=== PATIENT | male | born 1995 | race Caucasian/White ===

== ENCOUNTER 2022-08-12 21:03 | Emergency (ER) | payer OTHER ==
[~2022-08-12] VITALS: Ht 185.9 cm; Wt 106.5 kg
[2022-08-12 21:20] VITALS: BP 122/93
[2022-08-12] MEDS ORDERED: NS IV 1000 ML 1,000 ML IV SCH ×3 (21:30→22:45)
[2022-08-12] MEDS ORDERED: ONDANSETRON 4 MG/2 ML (SDV) Z0FRAN IVP ONE (21:30)
--- NOTE | 2022-08-12 21:33 | ED GI ---
General Stated Complaint: N/V/D Source of Information: Patient History of Present Illness Date Seen by Provider: August 12, 2022 Time Seen by Provider: 21:18 Initial Comments PT ARRIVES VIA POV FROM HOME IN [place] WITH PT STATES HE BEGAN GETTING SICK AROUND 2200 LAST NIGHT WITH NAUSEA / VOMITING / DIARRHEA HE HAS VOMITED X 3 HE HAS HAD OVER 40 EPISODES OF DIARRHEA. NO BLACK/BLOODY/TARRY STOOLS NO ABDOMINAL PAIN NO FEVER LAST VOID WAS 1 1/2 HOURS AGO, AND WAS VERY DARK. PT IS INSULIN DEPENDENT DIABETIC, AND HAS C.G.M. BLOOD SUGAR IS CURRENTLY 172. HE HAS NOT HAD ANY SIGNIFICANTLY HIGH OR LOW READINGS TODAY. READINGS HAVE BEEN FROM THE 80'S TO 170'S TODAY. PT WAS STARTED ON MOUNJARO 1 1/2 MONTHS AGO, AT 2.5 MG. EARLIER THIS WEEK IT WAS INCREASED TO 5 MG. HE HAS ALSO BEEN PRESCRIBED TOUJEO, BUT HE HAS NEVER TAKEN IT. HE HAS ALSO BEEN PRESCRIBED LISINOPRIL FOR HTN AND RENAL PROTECTION, BUT HE HAS NEVER TAKEN IT. HE STATES HE ONLY RECENTLY STARTED TAKING CARE OF HIMSELF IN REGARDS TO HIS DIABETES HE STATES HE HAS BEEN IN DKA A FEW TIMES. NO KNOWN SICK CONTACTS NO SUSPICIOUS FOODS NO HISTORY OF GI PROBLEMS PT HAS HAD COVID VACCINE X 3, NO FLU VACCINE PCP: DR. REYES [place] PRINCIPAL INVESTIGATOR: WITH LEIGH ANN GARCIA VIDA Allergies and Home Medications Allergies Coded Allergies: No Known Drug Allergies (Unverified , 08/12/22) Patient Home Medication List Home Medication List Reviewed: Yes Diphenoxylate HCl/Atropine (Lomotil 2.5-0.025 mg Tablet) 2.5 Mg-0.025 Mg Tablet, 1 EACH PO QID Prescribed by: RELL US on 08/13/2236 L. Acidophilus/Pectin, [place] (Acidophilus Capsule) 7.5 Mg (30 Million Cell)-100 Mg Capsule, 2 EACH PO QID Prescribed by: RELL US on 08/13/2236 Ondansetron (Ondansetron Odt) 8 Mg Tab.rapdis, 8 MG PO Q6H Prescribed by: RELL US on 08/13/2236 Review of Systems Review of Systems Constitutional: no symptoms reported Respiratory: No Symptoms Reported Cardiovascular: No Symptoms Reported Gastrointestinal: See HPI; Denies Abdominal Pain; Diarrhea, Nausea, Vomiting Genitourinary: See HPI Musculoskeletal: no symptoms reported Skin: no symptoms reported Psychiatric/Neurological: No Symptoms Reported Endocrine: No Symptoms Reported Hematologic/Lymphatic: No Symptoms Reported Past Dcfjkhj-[id number]-Hrthcx Hx Patient Social History Tobacco Use?: No Substance use?: No Alcohol Use?: No Past Medical History Surgeries: No Respiratory: No Cardiac: Yes Hypertension Neurological: No Genitourinary: No Gastrointestinal: No Musculoskeletal: No Endocrine: Yes Diabetes, Insulin dep HEENT: No Cancer: No Psychosocial: No Integumentary: No Physical Exam Vital Signs Vital Signs - First Documented 08/12/22 21:20 Temp 36.7 Pulse 111 Resp 16 B/P (MAP) 122/93 (103) Capillary Refill : Height/Weight/BMI Height: '" Weight: lbs. oz. kg; BMI Method: General Appearance: WD/WN, no apparent distress, other (DOES NOT APPEAR ILL OR TO BE IN ANY DISCOMFORT OR DISTRESS. SMILING AND PLEASANT, TEXTING/PLAYING ON PHONE. ) HEENT: PERRL/EOMI, other (ORAL MUCOSA IS MOIST) Neck: normal inspection Respiratory: normal breath sounds, no respiratory distress, no accessory muscle use Cardiovascular: regular rate, rhythm, no murmur Gastrointestinal: soft, no organomegaly, no pulsatile mass, abnormal bowel sounds (HYPERACTIVE), tenderness (MILD DIFFUSE TENDERNESS) Extremities: normal inspection, normal capillary refill Back: no CVA tenderness Neurologic/Psychiatric: clinical analyst II-XII nml as tested, no motor/sensory deficits, alert, normal mood/affect, oriented x 3 Skin: normal color, warm/dry Progress/Results/Core Measures Results/Orders Lab Results Laboratory Tests Test 08/12/22 21:00 08/12/22 21:27 08/12/22 21:52 08/12/22 22:23 Range/Units Stool Occult Blood Immunoassay POSITIVE H NEGATIVE White Blood Count 12.5 H 4.3-11.0 10^3/uL Red Blood Count 6.52 H 4.30-5.52 10^6/uL Hemoglobin 19.5 H 13.3-17.7 g/dL Hematocrit 56 H 40-54 % Mean Corpuscular Volume 87 80-99 fL Mean Corpuscular Hemoglobin 30 25-34 pg Mean Corpuscular Hemoglobin Concent 35 32-36 g/dL Red Cell Distribution Width 12.5 10.0-14.5 % Platelet Count 340 130-400 10^3/uL Mean Platelet Volume 11.3 9.0-12.2 fL Immature Granulocyte % (Auto) 0 % Neutrophils (%) (Auto) 74 42-75 % Lymphocytes (%) (Auto) 13 12-44 % Monocytes (%) (Auto) 8 0-12 % Eosinophils (%) (Auto) 5 0-10 % Basophils (%) (Auto) 0 0-10 % Neutrophils # (Auto) 9.3 H 1.8-7.8 10^3/uL Lymphocytes # (Auto) 1.6 1.0-4.0 10^3/uL Monocytes # (Auto) 1.0 0.0-1.0 10^3/uL Eosinophils # (Auto) 0.6 H 0.0-0.3 10^3/uL Basophils # (Auto) 0.0 0.0-0.1 10^3/uL Immature Granulocyte # (Auto) 0.0 0.0-0.1 10^3/uL Sodium Level 140 135-145 MMOL/L Potassium Level 4.1 3.6-5.0 MMOL/L Chloride Level 104 98-107 MMOL/L Carbon Dioxide Level 22 21-32 MMOL/L Anion Gap 14 5-14 MMOL/L Blood Urea Nitrogen 22 H 7-18 MG/DL Creatinine 1.35 H 0.60-1.30 MG/DL Estimat Glomerular Filtration Rate 73 BUN/Creatinine Ratio 16 Glucose Level 173 H 70-105 MG/DL Calcium Level 9.4 8.5-10.1 MG/DL Corrected Calcium 8.5-10.1 MG/DL Magnesium Level 1.8 1.6-2.4 MG/DL Total Bilirubin 1.8 H 0.1-1.0 MG/DL Aspartate Amino Transf (AST/SGOT) 14 5-34 U/L Alanine Aminotransferase (ALT/SGPT) 31 0-55 U/L Alkaline Phosphatase 56 40-136 U/L Total Protein 7.4 6.4-8.2 GM/DL Albumin 4.6 H 3.2-4.5 GM/DL Amylase Level 24 L 25-125 U/L Lipase 6 L 8-78 U/L Beta-Hydroxybutyrate (Chem panel) 0.33 H 0.00-0.27 MMOL/L Serum Alcohol < 10 <10 MG/DL Influenza Type A (RT-PCR) Not Detected Not Detecte Influenza Type B (RT-PCR) Not Detected Not Detecte SARS-CoV-2 RNA (RT-PCR) Not Detected Not Detecte Urine Color DARK YELLOW Urine Clarity CLEAR Urine pH 5.5 5-9 Urine Specific [place] >=1.030 1.016-1.022 Urine Protein 2+ H NEGATIVE Urine Glucose (UA) NEGATIVE NEGATIVE Urine Ketones TRACE H NEGATIVE Urine Nitrite POSITIVE H NEGATIVE Urine Bilirubin 2+ H NEGATIVE Urine Urobilinogen 1.0 < = 1.0 MG/DL Urine Leukocyte Esterase NEGATIVE NEGATIVE Urine RBC (Auto) NEGATIVE NEGATIVE Urine RBC 0-2 /HPF Urine WBC 2-5 /HPF Urine Squamous Epithelial Cells 2-5 /HPF Urine Crystals PRESENT H /LPF Urine Amorphous Sediment MOD KATELYN URATES H /LPF Urine Bacteria FEW H /HPF Urine Casts PRESENT /LPF Urine Hyaline Casts >50 H /LPF Urine Mucus LARGE H /LPF Urine Culture Indicated YES Urine Opiates Screen NEGATIVE NEGATIVE Urine Oxycodone Screen NEGATIVE NEGATIVE Urine Methadone Screen NEGATIVE NEGATIVE Urine Propoxyphene Screen NEGATIVE NEGATIVE Urine Barbiturates Screen NEGATIVE NEGATIVE Ur Tricyclic Antidepressants Screen NEGATIVE NEGATIVE Urine Phencyclidine Screen NEGATIVE NEGATIVE Urine Amphetamines Screen NEGATIVE NEGATIVE Urine Methamphetamines Screen NEGATIVE NEGATIVE Urine Benzodiazepines Screen NEGATIVE NEGATIVE Urine Cocaine Screen NEGATIVE NEGATIVE Urine Cannabinoids Screen NEGATIVE NEGATIVE My Orders Orders - RELL US DO Covid 19 Inhouse Test (08/12/22 21:17) Ed Iv/Invasive Line Start (08/12/22 21:17) Monitor-Rhythm Ecg Trace Only (08/12/22 21:17) Alcohol (08/12/22 21:17) Amylase (08/12/22 21:17) Cbc With Automated Diff (08/12/22 21:17) Comprehensive Metabolic Panel (08/12/22 21:17) Drug Screen Stat (Urine) (08/12/22 21:17) Lipase (08/12/22 21:17) Magnesium (08/12/22 21:17) Ua Culture If Indicated (08/12/22 21:17) Influenza A And B By Pcr (08/12/22 21:17) Isolation Central Supply Req (08/12/22 21:17) Ed Iv/Invasive Line Start (08/12/22 21:17) Ondansetron Injection (Zofran Injectio (08/12/22 21:30) Ed Iv/Invasive Line Start (08/12/22 21:17) Ns Iv 1000 Ml (Sodium Chloride 0.9%) (08/12/22 21:30) Hemoglobin A1c (08/12/22 21:48) Beta Hydroxybutyrate (08/12/22 21:27) Stool Culture (08/12/22 22:01) Fecal Wbc (08/12/22 22:01) C Difficile Ag + Toxin A/B. (08/12/22 22:01) Rotavirus Antigen (08/12/22 22:01) Isolation Central Supply Req (08/12/22 22:01) Occult Blood Stool (08/12/22 21:00) Ed Iv/Invasive Line Start (08/12/22 22:30) Ns Iv 1000 Ml (Sodium Chloride 0.9%) (08/12/22 22:30) Ed Iv/Invasive Line Start (08/12/22 22:31) Ns Iv 1000 Ml (Sodium Chloride 0.9%) (08/12/22 22:45) Ct Abdomen/Pelvis W (08/12/22 22:36) Urine Culture (08/12/22 22:23) Iohexol Injection (Omnipaque 350 Mg/Ml 1 (08/13/22 00:00) Received Contrast (Hold Metformin- Contr (08/13/22 00:00) Ns (Ivpb) (Sodium Chloride 0.9% Ivpb Bag (08/13/22 00:00) Rx-Ondansetron Po (Rx-Zofran Po) (08/13/22 00:32) Medications Given in ED Current Medications Medications Dose Ordered Sig/Harika Route Start Time Stop Time Status Last Admin Dose Admin Iohexol 100 ml ONCE ONCE IV 08/13/22 00:00 08/13/22 00:34 DC 08/12/22 23:59 100 ML Ondansetron HCl 4 mg ONCE ONCE IVP 08/12/22 21:30 08/12/22 21:31 DC 08/12/22 21:37 4 MG Sodium Chloride 100 ml ONCE ONCE IV 08/13/22 00:00 08/13/22 00:34 DC 08/12/22 23:59 80 ML Vital Signs/I&O 08/12/22 21:20 Temp 36.7 Pulse 111 Resp 16 B/P (MAP) 122/93 (103) Progress Progress Note : Progress Note PT'S CGM READS 172 ON ARRIVAL GIVEN: -IV FLUIDS -ZOFRAN--NAUSEA RESOLVED PT DID HAVE A SMALL LIQUID STOOL, LIGHT RED IN COLOR. SPECIMEN SENT TO LAB FOR ANALYSIS PT HAD A TOTAL OF 5 SMALL STOOLS DURING ER STAY. VITALS STABLE NO VOMITING DURING ER STAY NO FEVER NO ABDOMINAL PAIN PT VOIDED A COUPLE OF TIMES DURING ER STAY DO NOT FEEL THAT PT IS IN DKA--ONLY TRACE OF KETONES IN URINE, NO GLUCOSE IN URINE, BETA-HYDROXY BUTYRATE IS ONLY SLIGHTLY ELEVATED. NORMAL CO2 LEVEL AND NORMAL ANION GAP ON CHEMISTRY, WITH NORMAL ELECTROLYTES. PT DOES NOT HAVE ANY PHYSICAL SYMPTOMS OF DKA--STATES HE DOES NOT FEEL AT ALL LIKE HE HAS IN THE PAST WHEN HE HAS BEEN IN DKA--STATES HE DOES NOT FEEL SHORT OF BREATH, CANNOT TASTE THE KETONES AND CANNOT SMELL THE KETONES IN HIS URINE. PT STATES HE FEELS MUCH BETTER, AND FEELS COMFORTABLE GOING HOME DISCUSSED TEST RESULTS, AND DISCUSSED PENDING STOOL CULTURES AND URINE CULTURE. PT HAS NO URINARY SYMPTOMS AT THIS TIME. WILL HOLD OFF ON TREATING UTI WITH ANTIBIOTICS AT THIS TIME DUE TO THE DEGREE OF DIARRHEA THAT PT IS HAVING, AND AWAIT CULTURE RESULTS BEFORE PRESCRIBING ANTIBIOTICS DISCUSSED DIET, MEDICATIONS, NEED FOR FOLLOW UP AND RETURN PRECAUTIONS WITH PT AND . AT THIS POINT, UNABLE TO DETERMINE IF HIS SYMPTOMS ARE DUE TO INFECTIOUS ETIOLOGY OR RELATED TO HIS RECENT INCREASED DOSE OF MOUNJARO Diagnostic Imaging Comments CT ABDOMEN/PELVIS--PER [facility] VIA FAX AT 0020 -UNREMARKABLE APPENDIX -CONSIDER MILD DIFFUSE ENTEROCOLITIS -NO BOWEL OBSTRUCTION -FATTY LIVER -GALLBLADDER IS UNREMARKABLE -NO HYDRONEPHROSIS Reviewed: Reviewed by Me Departure Impression Primary Impression: Gastroenteritis Additional Impressions: Dehydration Diabetes mellitus Disposition: 01 HOME, SELF-CARE Condition: Improved Departure-Patient Inst. Decision time for Depature: 00:33 Referrals: SYDNI REYES DO (PCP/Family) Primary Care Physician Patient Instructions: Dehydration, Adult (DC), [id number], Sick Day Management for Diabetics Add. Discharge Instructions: CLEAR LIQUIDS--WATER, BROTH, JELLO, GATORADE WHEN YOUR NAUSEA IS BETTER, AND YOU ARE TOLERATING CLEAR LIQUIDS, YOU MAY THEN ADD A BRATS DIET TO CLEAR LIQUIDS--BANANAS, RICE, APPLSAUCE, TOAST, SALTINES FOLLOW UP WITH YOUR REGULAR DR ON MONDAY FOR FURTHER CARE YOU MAY ALSO NEED TO FOLLOW UP WITH YOUR PRINCIPAL INVESTIGATOR WELL. RETURN TO ER IF YOUR SYMPTOMS WORSEN Scripts Diphenoxylate HCl/Atropine (Lomotil 2.5-0.025 mg Tablet) 2.5 Mg-0.025 Mg Tablet 1 EACH PO QID, #12 TAB Prov: RELL US DO 08/13/22 Ondansetron (Ondansetron Odt) 8 Mg Tab.rapdis 8 MG PO Q6H, #10 TAB Prov: RELL US DO 08/13/22 L. Acidophilus/Pectin, [place] (Acidophilus Capsule) 7.5 Mg (30 Million Cell)-100 Mg Capsule 2 EACH PO QID, #40 CAP Prov: RELL US DO 08/13/22 RELL US DO August 12, 2022 21:33
[2022-08-12 21:38] LABS: BASOPHILS % (AUTO) 0 % (0-10); EOSINOPHILS # (AUTO) 0.6 10^3/uL (0.0-0.3); EOSINOPHILS % (AUTO) 5 % (0-10); HEMATOCRIT 56 % (40-54); HEMOGLOBIN 19.5 g/dL (13.3-17.7); LYMPHOCYTES # (AUTO) 1.6 10^3/uL (1.0-4.0); LYMPHOCYTES % (AUTO) 13 % (12-44); MEAN CORPUSCULAR HEMOGLOBIN 30 pg (25-34); MEAN CORPUSCULAR HGB CONC 35 g/dL (32-36); MEAN CORPUSCULAR VOLUME 87 fL (80-99); MEAN PLATELET VOLUME 11.3 fL (9.0-12.2); MONOCYTES % (AUTO) 8 % (0-12); NEUTROPHILS # (AUTO) 9.3 10^3/uL (1.8-7.8); NEUTROPHILS % (AUTO) 74 % (42-75); PLATELET COUNT 340 10^3/uL (130-400); WHITE BLOOD COUNT 12.5 10^3/uL (4.3-11.0)
[2022-08-12 21:50] LABS: ALBUMIN 4.6 GM/DL (3.2-4.5); CHLORIDE 104 MMOL/L (98-107); POTASSIUM 4.1 MMOL/L (3.6-5.0); SODIUM 140 MMOL/L (135-145)
[2022-08-12 21:51] LABS: CALCIUM 9.4 MG/DL (8.5-10.1)
[2022-08-12 21:52] LABS: AMYLASE 24 U/L (25-125)
[2022-08-12 21:53] LABS: GLUCOSE 173 MG/DL (70-105); TOTAL PROTEIN 7.4 GM/DL (6.4-8.2)
[2022-08-12 21:54] LABS: BILIRUBIN,TOTAL 1.8 MG/DL (0.1-1.0); CARBON DIOXIDE 22 MMOL/L (21-32)
[2022-08-12 21:56] LABS: ALKALINE PHOSPHATASE 56 U/L (40-136)
[2022-08-12 21:57] LABS: CREATININE SERUM 1.35 MG/DL (0.60-1.30); GFR ESTIMATED 73
[2022-08-12 21:58] LABS: BUN/CREATININE RATIO 16
[2022-08-12 21:59] LABS: ALANINE AMINOTRANSFERASE 31 U/L (0-55)
[2022-08-12 22:00] LABS: MAGNESIUM 1.8 MG/DL (1.6-2.4)
[2022-08-12 22:01] LABS: LIPASE 6 U/L (8-78)
[2022-08-12 22:28] LABS: CLARITY,URINE CLEAR; COLOR,URINE DARK YELLOW; GLUCOSE, URINE (UA) NEGATIVE (NEGATIVE); KETONES,URINE TRACE (NEGATIVE); LEUKOCYTE ESTERASE ,URINE NEGATIVE (NEGATIVE); NITRITE,URINE POSITIVE (NEGATIVE); PH,URINE 5.5 (5-9); PROTEIN,URINE 2+ (NEGATIVE)
[2022-08-12 22:39] LABS: BILIRUBIN,URINE 2+ (NEGATIVE)
[2022-08-12 22:40] LABS: AMORPHOUS SEDIMENT,UR MOD AMOR URATES /LPF; BACTERIA,URINE FEW /HPF; RBC,URINE 0-2 /HPF
[2022-08-12 22:41] LABS: HYALINE CASTS, URINE >50 /LPF
[2022-08-12 22:43] LABS: AMPHETAMINE SCREEN, URINE NEGATIVE (NEGATIVE); BARBITURATE SCREEN URINE NEGATIVE (NEGATIVE); BENZODIAZEPINES SCREEN URINE NEGATIVE (NEGATIVE); CANNABINOID SCREEN, URINE NEGATIVE (NEGATIVE); COCAINE SCREEN URINE NEGATIVE (NEGATIVE); METHADONE STAT NEGATIVE (NEGATIVE); OPIATE SCREEN URINE NEGATIVE (NEGATIVE); OXYCODONE STAT NEGATIVE (NEGATIVE); PROPOXYPHENE STAT NEGATIVE (NEGATIVE); TRICYCLIC ANTIDEPRESSANTS SCRE NEGATIVE (NEGATIVE)
[2022-08-13] MEDS ORDERED: NS 100 ML (IVPB) BAG IV ONE
[2022-08-13] MEDS ORDERED: IOHEXOL 350 MG/ML 100 ML (OMNIPAQUE 350) VIAL IV ONE
[2022-08-13] MEDS ORDERED: HOLD METFORMIN - RECEIVED CONTRAST 20 ML VIAL IV SCH
[2022-08-13] MEDS ORDERED: RX-ONDANSETRON 4 MG ODT (ZOFRAN) PPK #4 PO STA (00:32)
[2022-08-13] MEDS ORDERED: L. A1CAP11 PO (00:37)
[2022-08-13] MEDS ORDERED: ONDA8TAB13 PO (00:37)
[2022-08-13] MEDS ORDERED: DIPH1TAB PO ×2 (00:37)
--- NOTE | 2022-08-13 07:02 | Diagnostic Imaging Report ---
CT ABDOMEN/PELVIS W TECHNIQUE: Multiple contiguous axial images were obtained through the abdomen and pelvis after administration of intravenous contrast. All CT scans use one or more of the following dose optimizing techniques: automated exposure control, MA and/or KvP adjustment based on patient size and exam type or iterative reconstruction. INDICATION: Diarrhea COMPARISON: None available. FINDINGS: Lower chest: The lung bases are clear. No pericardial or pleural effusion. Peritoneum: No free intraperitoneal air or fluid. Liver and biliary system: The liver is normal. The gallbladder is normal. No biliary duct dilation. Spleen and Pancreas: Spleen is normal. The pancreas enhances normally without mass lesion or peripancreatic inflammatory changes. Adrenals: Normal. tract: The kidneys enhance normally without suspicious mass or obstruction. Urinary bladder is decompressed. Prostate is normal. GI tract: Stomach is fluid-filled but nondistended. No bowel obstruction. No pericolonic inflammatory changes. Small bowel and colon are fluid-filled. Normal appendix. Vasculature and Lymph nodes: Normal caliber aorta. No abdominal or pelvic lymphadenopathy. Musculoskeletal: No concerning osseous lesion. IMPRESSION: 1. No active inflammation in the small bowel or colon. 2. Fluid-filled gastrointestinal tract is most likely due to gastroenteritis. 3. Findings are in agreement with the preliminary report. Dictated by: Dictated on workstation # [id number]
== END 2022-08-13 00:55 | disposition home or self-care (01) ==
LOC: ER 21:05
DX: K52.9 Noninfective gastroenteritis and colitis, unspecified (principal); E11.9 Type 2 diabetes mellitus without complications; E86.0 Dehydration; Z20.822 Contact with and (suspected) exposure to COVID-19
CPT/HCPCS: 74177; 80053; 80306; 81000; 82010; 82150; 82274; 83036; 83690; 83735; 85025; 87015; 87045; 87046; 87088; 87324; 87425; 87449; 87636; 87899; 93041; 99284; G0480; 36415; 80320